=== PATIENT | male | born 1945 | race Caucasian/White ===

== ENCOUNTER 2017-07-16 16:07 | Emergency (ER) | payer MEDICARE ==
[~2017-07-16] VITALS: Ht 170.2 cm; Wt 86.2 kg
[2017-07-16] MEDS ORDERED: RANI150 (16:24)
[2017-07-16] MEDS ORDERED: CLOP75 (16:25)
[2017-07-16] MEDS ORDERED: LISI20 (16:25)
[2017-07-16] MEDS ORDERED: SERT100 (16:25)
[2017-07-16] MEDS ORDERED: ALLO100 (16:26)
[2017-07-16 16:34] LABS: BASOPHILS ABSOLUTE AUTO 0.07 K/mm3 (0.00-0.23); BASOPHILS PERCENT AUTO 1 % (0-2); EOSINOPHILS ABSOLUTE AUTO 0.27 K/mm3 (0.00-0.68); EOSINOPHILS PERCENT AUTO 3 % (0-6); Hemoglobin 14.1 g/dL (13.5-17.5); IMMATURE GRAN ABSOLUTE AUTO 0.05 K/mm3 (0.00-0.10); IMMATURE GRAN PERCENT AUTO 1 % (0-1); LYMPHOCYTES ABSOLUTE AUTO 1.18 K/mm3 (0.84-5.20); LYMPHOCYTES PERCENT AUTO 13 % (21-46); MONOCYTES ABSOLUTE AUTO 0.44 K/mm3 (0.16-1.47); MONOCYTES PERCENT AUTO 5 % (4-13); Mean Corpuscular HGB 30.1 pg (26.0-34.0); Mean Corpuscular HGB Conc 34.4 g/dL (31.5-36.5); Mean Corpuscular Volume 88 fL (80-100); Mean Platelet Volume 10.1 fL (9.1-12.4); NEUTROPHILS ABSOLUTE AUTO 6.91 K/mm3 (1.96-9.15); NEUTROPHILS PERCENT AUTO 78 % (41-73); Platelet Count 171 K/mm3 (150-400); RDW Coefficient Variation 12.6 % (11.7-14.2); RDW Standard Deviation 39.9 fL (35.1-46.3); Red Blood Cell Count 4.68 M/mm3 (4.30-5.90); White Blood Cell Count 8.92 K/mm3 (4.00-11.30)
[2017-07-16 17:12] LABS: Alanine Aminotransfer (ALT/SGP 22 U/L (12-78); Albumin, Blood 3.7 g/dL (3.4-5.0); Alk Phos 73 U/L (50-136); Anion Gap 13 mmol/L (6-16); Aspartate Aminotrans (AST/SGOT 22 U/L (12-37); Bilirubin, Total 0.4 mg/dL (0.1-1.0); Blood Urea Nitrogen 18 mg/dL (8-24); Bun/Creatinine Ratio 14.8 (12.0-20.0); CO2, Blood 20 mmol/L (21-32); Calcium, Blood 9.2 mg/dL (8.5-10.1); Chloride, Blood 104 mmol/L (98-108); Creatinine, Blood 1.22 mg/dL (0.60-1.20); Globulin, Blood 3.7 g/dL (2.2-4.0); Glomerular Filtration Rate >60 (60-); Glucose, Blood 97 mg/dL (70-99); Potassium, Blood 4.4 mmol/L (3.5-5.5); Sodium, Blood 137 mmol/L (136-145); Total Protein, Blood 7.4 g/dL (6.4-8.2)
== END 2017-07-16 18:16 | disposition home or self-care (01) ==
LOC: ER 16:07
PROVIDERS: Emergency Medicine
DX: R55 Syncope and collapse (principal); Z88.0 Allergy status to penicillin; Z79.899 Other long term (current) drug therapy; F17.200 Nicotine dependence, unspecified, uncomplicated
CPT/HCPCS: 70450; 71046; 80053; 85025; 93005; 93010; 99284

== ENCOUNTER 2017-09-02 16:18 | Emergency (ER) | payer MEDICARE ==
[~2017-09-02] VITALS: Ht 170.2 cm; Wt 81.7 kg
[~2017-09-02 16:18] MED LIST: ALLO100; CLOP75; LISI20; RANI150; SERT100
[2017-09-02] MEDS ORDERED: ROSU10TA PO (16:47)
[2017-09-02] MEDS ORDERED: EZET10 PO (16:48)
[2017-09-02] MEDS ORDERED: FINA5 PO (16:48)
[2017-09-02] MEDS ORDERED: TAMS.4ER PO (16:49)
[2017-09-02] MEDS ORDERED: ASPI325 PO (16:50)
[2017-09-02 17:15] LABS: BASOPHILS ABSOLUTE AUTO 0.05 K/mm3 (0.00-0.23); BASOPHILS PERCENT AUTO 0 % (0-2); EOSINOPHILS ABSOLUTE AUTO 0.27 K/mm3 (0.00-0.68); EOSINOPHILS PERCENT AUTO 2 % (0-6); Hematocrit 41.8 % (37.0-53.0); Hemoglobin 14.4 g/dL (13.5-17.5); IMMATURE GRAN PERCENT AUTO 1 % (0-1); LYMPHOCYTES ABSOLUTE AUTO 1.02 K/mm3 (0.84-5.20); LYMPHOCYTES PERCENT AUTO 8 % (21-46); MONOCYTES ABSOLUTE AUTO 0.53 K/mm3 (0.16-1.47); MONOCYTES PERCENT AUTO 4 % (4-13); Mean Corpuscular HGB 29.8 pg (26.0-34.0); Mean Corpuscular HGB Conc 34.4 g/dL (31.5-36.5); Mean Corpuscular Volume 86 fL (80-100); Mean Platelet Volume 10.2 fL (9.1-12.4); NEUTROPHILS ABSOLUTE AUTO 10.76 K/mm3 (1.96-9.15); NEUTROPHILS PERCENT AUTO 85 % (41-73); Platelet Count 163 K/mm3 (150-400); RDW Coefficient Variation 13.2 % (11.7-14.2); RDW Standard Deviation 41.1 fL (35.1-46.3); Red Blood Cell Count 4.84 M/mm3 (4.30-5.90); White Blood Cell Count 12.73 K/mm3 (4.00-11.30)
[2017-09-02 17:31] LABS: Albumin, Blood 3.9 g/dL (3.4-5.0); Bilirubin, Total 0.7 mg/dL (0.1-1.0); Bun/Creatinine Ratio 12.2 (12.0-20.0); Calcium, Blood 8.7 mg/dL (8.5-10.1); Creatinine, Blood 1.48 mg/dL (0.60-1.20); Globulin, Blood 3.8 g/dL (2.2-4.0); Potassium, Blood 4.4 mmol/L (3.5-5.5); Total Protein, Blood 7.7 g/dL (6.4-8.2)
[2017-09-02 17:58] LABS: Source, Urine Clean Catch
[2017-09-02 18:04] LABS: Appearance, Urine Clear (Clear); Bilirubin, Urine Neg (Neg); Blood, Urine 4+ (Neg); Color, Urine Yellow (P-Yellow); Glucose Qualitative, Urine Neg (Neg); Ketones, Urine Neg (Neg); Leukocyte Esterase, Urine Neg (Neg); Nitrite, Urine Neg (Neg); Protein, Urine 2+ (Neg); Urobilinogen, Urine NORM (Normal)
[2017-09-02] MEDS ORDERED: LEVE500 PO (18:23)
[2017-09-02 18:26] LABS: Bacteria Not Seen /hpf; Red Blood Cells, Urine Not Seen /hpf (0-2); Squamous Epithelial Cells Not Seen /hpf (Few); White Blood Cells, Urine Not Seen /hpf (0-5)
== END 2017-09-02 18:52 | disposition home or self-care (01) ==
LOC: ER 16:18
PROVIDERS: Emergency Medicine
DX: G40.909 Epilepsy, unspecified, not intractable, without status epilepticus (principal); I10 Essential (primary) hypertension; E78.5 Hyperlipidemia, unspecified; Z86.73 Personal history of transient ischemic attack (TIA), and cerebral infarction without residual deficits; Z88.0 Allergy status to penicillin; Z79.899 Other long term (current) drug therapy; Z79.82 Long term (current) use of aspirin
CPT/HCPCS: 70450; 80053; 81001; 85025; 93005; 93010; 96365; 99284; J1953

== ENCOUNTER 2024-06-22 11:33 | Emergency (ER) | payer OTHER ==
[~2024-06-22] VITALS: Ht 182.9 cm; Wt 70.3 kg
[~2024-06-22 11:33] MED LIST changes: +ASPI325 PO; +EZET10 PO; +FINA5 PO; +LEVE500 PO; +ROSU10TA PO; +TAMS.4ER PO
[2024-06-22] MEDS ORDERED: Cetirizine HCl10 MG PO (11:45)
[2024-06-22] MEDS ORDERED: QUETIAPINE FUMA5012 PO (11:45)
[2024-06-22] MEDS ORDERED: AMLODIPINE BESYL5 MG PO (11:45)
[2024-06-22] MEDS ORDERED: Lamictal150 MG PO (11:47)
[2024-06-22] MEDS ORDERED: Cholecalciferol1 GM PO (11:48)
[2024-06-22] MEDS ORDERED: ROSUVASTATIN CA40 MG PO (11:48)
[2024-06-22] MEDS ORDERED: OMEP20ER PO (11:48)
[2024-06-22] MEDS ORDERED: ERGO400 PO (11:49)
[2024-06-22] MEDS ORDERED: TRAZ50 PO (11:49)
[2024-06-22] MEDS ORDERED: ZOLOFT10013 PO (11:49)
[2024-06-22] MEDS ORDERED: Morphine Sulfate 4 MG/1 ML Injection IV ONE (12:45)
[2024-06-22] MEDS ORDERED: Ondansetron HCl 2 MG / ML 2ML Vial IV ONE (12:45)
[2024-06-22 15:00] VITALS: BP 160/66
== END 2024-06-22 16:50 | disposition home or self-care (01) ==
LOC: ER 11:33
DX: S12.110A Anterior displaced Type II dens fracture, initial encounter for closed fracture (principal); I10 Essential (primary) hypertension; E78.5 Hyperlipidemia, unspecified; F17.200 Nicotine dependence, unspecified, uncomplicated; W01.0XXA Fall on same level from slipping, tripping and stumbling without subsequent striking against object, initial encounter; Z86.73 Personal history of transient ischemic attack (TIA), and cerebral infarction without residual deficits; Z79.899 Other long term (current) drug therapy; Z88.0 Allergy status to penicillin
CPT/HCPCS: 70450; 72125; 93005; 93010; 96374; 96375; 99284-25; J2270; J2405; L0160

== ENCOUNTER 2024-08-30 23:13 | Observation (INO) | payer OTHER ==
[~2024-08-30] VITALS: Ht 170.2 cm; Wt 72.6 kg
[~2024-08-30 23:13] MED LIST changes: +AMLODIPINE BESYL5 MG PO; +Cetirizine HCl10 MG PO; +ERGO400 PO; +Lamictal150 MG PO; +OMEP20ER PO; +QUET200 PO; +ROSUVASTATIN CA40 MG PO; +TRAZ50 PO; +VITAMIN D5000 UNIT PO; +ZOLOFT10013 PO
[2024-08-30 23:29] LABS: BASOPHILS ABSOLUTE AUTO 0.04 K/mm3 (0.00-0.23); BASOPHILS PERCENT AUTO 1 % (0-2); EOSINOPHILS ABSOLUTE AUTO 0.24 K/mm3 (0.00-0.68); EOSINOPHILS PERCENT AUTO 5 % (0-6); Hematocrit 36.4 % (37.0-53.0); Hemoglobin 12.2 g/dL (13.5-17.5); IMMATURE GRAN ABSOLUTE AUTO 0.02 K/mm3 (0.00-0.10); IMMATURE GRAN PERCENT AUTO 0 % (0-1); LYMPHOCYTES PERCENT AUTO 21 % (21-46); MONOCYTES ABSOLUTE AUTO 0.41 K/mm3 (0.16-1.47); MONOCYTES PERCENT AUTO 8 % (4-13); Mean Corpuscular HGB 29.2 pg (26.0-34.0); Mean Corpuscular HGB Conc 33.5 g/dL (31.5-36.5); Mean Corpuscular Volume 87 fL (80-100); Mean Platelet Volume 9.6 fL (9.1-12.4); NEUTROPHILS ABSOLUTE AUTO 3.33 K/mm3 (1.96-9.15); NEUTROPHILS PERCENT AUTO 65 % (41-73); Platelet Count 145 K/mm3 (150-400); RDW Coefficient Variation 14.3 % (11.7-14.2); RDW Standard Deviation 45.6 fL (35.1-46.3); Red Blood Cell Count 4.18 M/mm3 (4.30-5.90); White Blood Cell Count 5.14 K/mm3 (4.00-11.30)
[2024-08-30 23:41] LABS: Alanine Aminotransfer (ALT/SGP 21 U/L (12-78); Albumin, Blood 3.4 g/dL (3.4-5.0); Alk Phos 77 U/L (50-136); Anion Gap 11 mmol/L (3-11); Aspartate Aminotrans (AST/SGOT 15 U/L (12-37); Bilirubin, Total 0.3 mg/dL (0.1-1.0); Blood Urea Nitrogen 29 mg/dL (8-24); Bun/Creatinine Ratio 22.8 (12.0-20.0); CO2, Blood 23 mmol/L (21-32); Calcium, Blood 8.6 mg/dL (8.5-10.1); Chloride, Blood 106 mmol/L (98-108); Creatinine, Blood 1.27 mg/dL (0.60-1.20); Ethanol (Alcohol), Blood, Med <3 mg/dL; Globulin, Blood 3.5 g/dL (2.2-4.0); Glomerular Filtration Rate 58 (60-); Glucose, Blood 117 mg/dL (70-99); Sodium, Blood 136 mmol/L (136-145); Total Protein, Blood 6.9 g/dL (6.4-8.2)
[2024-08-31] MEDS ORDERED: Aspirin 325 MG Tab PO ONE (00:20)
[2024-08-31] MEDS ORDERED: Morphine Sulfate 4 MG/1 ML Injection IV ONE ×2 (00:55→01:30)
[2024-08-31] MEDS ORDERED: Acetaminophen 325 MG TABLET PO PRN (01:05)
[2024-08-31] MEDS ORDERED: FLU VACC TS2024-25(6MOS UP)/PF 45 MCG/0.5 ML SYRINGE IM ONE (01:05)
[2024-08-31 01:09] LABS: U Amphetamine Screen Not Detected; U Barbituate Screen Not Detected; U Benzodiazapine Screen Not Detected; U Buprenorphine Screen Not Detected; U Cannabinoids Screen DETECTED; U Cocaine Screen Not Detected; U Methadone Screen Not Detected; U Methamphetamine Screen Not Detected; U Opiates Screen Not Detected; U Oxycodone Screen Not Detected; U Phencyclidine Screen Not Detected
[2024-08-31] MEDS ORDERED: TraMADol HCl 50 MG Tab PO PRN (01:10)
[2024-08-31] MEDS ORDERED: Ondansetron HCl 2 MG / ML 2ML Vial IV PRN (01:10)
[2024-08-31] MEDS ORDERED: Morphine Sulfate 4 MG/1 ML Injection IV PRN (01:10)
[2024-08-31] MEDS ORDERED: Naloxone HCl 0.4MG / ML 1ML Vial IV PRN (01:10)
[2024-08-31 05:03] LABS: BASOPHILS ABSOLUTE AUTO 0.04 K/mm3 (0.00-0.23); BASOPHILS PERCENT AUTO 1 % (0-2); EOSINOPHILS ABSOLUTE AUTO 0.25 K/mm3 (0.00-0.68); EOSINOPHILS PERCENT AUTO 5 % (0-6); Hematocrit 35.1 % (37.0-53.0); Hemoglobin 11.7 g/dL (13.5-17.5); IMMATURE GRAN ABSOLUTE AUTO 0.02 K/mm3 (0.00-0.10); IMMATURE GRAN PERCENT AUTO 0 % (0-1); LYMPHOCYTES PERCENT AUTO 25 % (21-46); MONOCYTES ABSOLUTE AUTO 0.39 K/mm3 (0.16-1.47); MONOCYTES PERCENT AUTO 8 % (4-13); Mean Corpuscular HGB 29.1 pg (26.0-34.0); Mean Corpuscular HGB Conc 33.3 g/dL (31.5-36.5); Mean Corpuscular Volume 87 fL (80-100); Mean Platelet Volume 10.1 fL (9.1-12.4); NEUTROPHILS ABSOLUTE AUTO 2.87 K/mm3 (1.96-9.15); NEUTROPHILS PERCENT AUTO 60 % (41-73); Platelet Count 128 K/mm3 (150-400); RDW Coefficient Variation 14.3 % (11.7-14.2); RDW Standard Deviation 45.8 fL (35.1-46.3); Red Blood Cell Count 4.02 M/mm3 (4.30-5.90); White Blood Cell Count 4.77 K/mm3 (4.00-11.30)
[2024-08-31 05:14] LABS: Albumin, Blood 3.2 g/dL (3.4-5.0); Bilirubin, Total 0.2 mg/dL (0.1-1.0); Calcium, Blood 8.1 mg/dL (8.5-10.1); Creatinine, Blood 1.13 mg/dL (0.60-1.20); Globulin, Blood 3.2 g/dL (2.2-4.0); Magnesium, Blood 2.4 mg/dL (1.6-2.4); Potassium, Blood 3.8 mmol/L (3.5-5.5); Total Protein, Blood 6.4 g/dL (6.4-8.2)
[2024-08-31] MEDS ORDERED: Aspirin 81 MG Chew PO SCH (09:00)
[2024-08-31] MEDS ORDERED: Docusate Sodium 100 MG Cap PO SCH (09:00)
[2024-08-31] MEDS ORDERED: Atorvastatin 40 MG Tab PO SCH (09:00)
--- NOTE | 2024-08-31 14:16 | NUR ---
1414 REPORT FROM BRUNO RAMIREZ IN ER
[2024-08-31 15:08] VITALS: BP 181/70
[2024-08-31 19:33] VITALS: BP 171/83
[2024-09-01 00:12] VITALS: BP 174/64
[2024-09-01 02:53] VITALS: BP 211/124
[2024-09-01] MEDS ORDERED: AmLODIPine Besylate 5 MG Tab PO SCH ×2 (03:00→21:00)
[2024-09-01 04:55] VITALS: BP 205/80
[2024-09-01] MEDS ORDERED: Labetalol HCL 5 MG/ML 4ML Injection (Single Dose) IV PRN (05:10)
--- NOTE | 2024-09-01 06:10 | NUR ---
Shift Summary Pt admitted to this unit from ED for possible CVA. MRI and CT are both negative. Pt has somewhat slurred speech, strength is equal and appropriate on both sides, eyes PERRLA. He has a neck collar on for C2 fracture, he left it on t/o the night. He is AOx4, bed alarm on, remains in bed and uses the urinal independently. Q4 neuro checks, no changes t/o the night. Pt was hypertensive t/o the night and on permissive hypertension. This AM around 0300 his BP was 211/124, I called the hospitalist who restarted his home Amlodipine with first dose now. At 0500 his BP was 205/80, I called the hospitalist again who ordered IV Labetelol with paramaters for systolic > 180 but I was unable to administer b/c pt's resting HR is between 55-77 usually on the lower end. He is currently resting comfortably in bed. No c/o of pain or nausea.
[2024-09-01 08:18] VITALS: BP 178/75
[2024-09-01] MEDS ORDERED: ZESTRIL40 M1 PO (16:50)
[2024-09-01] MEDS ORDERED: HYDROXYZINE PAM25 MG PO (16:56)
--- NOTE | 2024-09-01 18:32 | NUR ---
NO CHANGES, PATIENTS ORIENTATION 1-2, SELF AND STAFF, PERSON, NOT PLACE OR TIME. TWO PERSON ASSIST DUE TO SHAKEY NESS, C2 FX, AND DEMENTIA WHEN GIVING QUES FOR SAFE AMBULATION AND TRANSFERING, LARGE BM TODAY, PATIENT PULLED IV OUT, DENIES PAIN AT THIS TIME, MEDICATED WITH TYLENOL EARLIER, BED ALARM ON, CALL LIGHT WITH IN REACH
[2024-09-01 18:41] VITALS: BP 176/77
[2024-09-01 19:53] VITALS: BP 150/67
--- NOTE | 2024-09-02 04:00 | NUR ---
SHIFT SUMMARY ADMITTED FOR CVA VS. TIA. FULL CODE. PLAN IS FOR PLACEMENT. C-COLLAR IN PLACE FOR A C2 FRACTURE RETAINED FROM A GLF. MRI C-SPINE PERFORMED ON PREVIOUS SHIFT. CARDIAC DIET. 2 MAX ASSIST W/FWW & GB. HE IS A&O X2 - HE DOES PULL OFF LINES AND TUBING. PHYSICAL AND OCCUPATIONAL THERAPIES ARE ORDERED.
[2024-09-02 04:16] VITALS: BP 171/74
[2024-09-02 05:19] LABS: BASOPHILS ABSOLUTE AUTO 0.04 K/mm3 (0.00-0.23); BASOPHILS PERCENT AUTO 1 % (0-2); EOSINOPHILS ABSOLUTE AUTO 0.32 K/mm3 (0.00-0.68); EOSINOPHILS PERCENT AUTO 5 % (0-6); Hematocrit 40.4 % (37.0-53.0); Hemoglobin 13.9 g/dL (13.5-17.5); IMMATURE GRAN ABSOLUTE AUTO 0.02 K/mm3 (0.00-0.10); IMMATURE GRAN PERCENT AUTO 0 % (0-1); LYMPHOCYTES ABSOLUTE AUTO 1.02 K/mm3 (0.84-5.20); LYMPHOCYTES PERCENT AUTO 16 % (21-46); MONOCYTES PERCENT AUTO 9 % (4-13); Mean Corpuscular HGB 29.1 pg (26.0-34.0); Mean Corpuscular HGB Conc 34.4 g/dL (31.5-36.5); Mean Corpuscular Volume 85 fL (80-100); Mean Platelet Volume 9.6 fL (9.1-12.4); NEUTROPHILS ABSOLUTE AUTO 4.47 K/mm3 (1.96-9.15); NEUTROPHILS PERCENT AUTO 69 % (41-73); Platelet Count 145 K/mm3 (150-400); RDW Standard Deviation 43.4 fL (35.1-46.3); Red Blood Cell Count 4.78 M/mm3 (4.30-5.90); White Blood Cell Count 6.47 K/mm3 (4.00-11.30)
[2024-09-02 05:42] LABS: Bun/Creatinine Ratio 21.6 (12.0-20.0); Calcium, Blood 8.9 mg/dL (8.5-10.1); Creatinine, Blood 1.11 mg/dL (0.60-1.20); Potassium, Blood 4.1 mmol/L (3.5-5.5)
[2024-09-02 07:36] VITALS: BP 175/61
[2024-09-02] MEDS ORDERED: Losartan Potassium 25 MG Tab PO SCH (09:00)
--- NOTE | 2024-09-02 10:15 | NUR ---
C-COLLAR DC'D- DR JACQUES AT THE BEDSIDE. C2 Fx IS NON HEALING, C-COLLAR DC'D PER ORDER. SPOKE TO ABOUT PT CODE STATUS, RECIEVED A CONSULT FOR PALLIATIVE CARE FOR POLST FORM AND CODE STATUS CHANGE.
[2024-09-02] MEDS ORDERED: HydrALAZINE HCl 10 MG Tab PO PRN (14:25)
[2024-09-02] MEDS ORDERED: Losartan Potassium 50 MG Tab PO SCH (15:00)
[2024-09-02 15:14] VITALS: BP 137/74
--- NOTE | 2024-09-02 15:30 | NUR ---
CALLED DR JACQUES- [place] DOSE CHANGED TO 50MG FROM 25 WITH FIRST DOSE NOW. BP 137 SYSTOLIC NOW. ORDER RECIEVED TO START THE MED TOMORROW MORNING INSTEAD.
--- NOTE | 2024-09-02 16:33 | NUR ---
SHIFT SUMMARY- PT HAD HIS C-COLLAR REMOVED BY STAFF PER DR LOPEZ ORDER, SEE PREV NOTE FOR DETAILS. PT HAS HAD NO ACUTE CHANGE T/O THE SHIFT. HE IS A&O X2. SPOUSE NEVER CAME TO VISIT, SO CODE STATUS WAS NOT DISCUSSED. PALLIATIVE CARE WAS CONSULTED.
[2024-09-02 19:02] VITALS: BP 136/63
[2024-09-03 03:53] VITALS: BP 157/64
[2024-09-03 07:19] VITALS: BP 157/68
--- NOTE | 2024-09-03 12:57 | NUR ---
PC NOTE: MET WITH PATIENT IN HIS ROOM. ZAIN IS SITTING UP IN CHAIR AT BEDSIDE. HE IS A/O AND ABLE TO PARTICIPATE IN MEANINGFUL CONVERSATION. WE DISCUSS CODE STATUS. HE IS EDUCATED ON WHAT CPR/DNR MEASURES ARE. PT STATES HE WANTS TO BE A DNR ALS O STATING "JUST LET ME GO, I DON'T WANT TO GO THROUGH THAT". ALSO SPOKE TO HUEY WHOM HE LIVES WITH. SHE STATES HE DID HAVE A POLST AT ONE TIME THAT WAS DNR BUT THEY LOST THE FORM. SHE AGREES TO HAVE HIS CODE STATUS DNR WITH SELECTIVE TREATMENT. ZAIN AGREES TO HAVE CODE STATUS CHANGED DURING THIS HOSPITAL STAY. UPDATED DR. JACQUES WITH PT/SPOUSE WISHES. SHE AGREES TO CODE STATUS CHANGE AND SIGNED THE POLST. COPY SENT TO POLST REGISTRY. CODE STATUS CHANGED IN [facility]. COPY PPLACED ON CHART AND ORIGINAL GIVEN TO ZAIN.
--- NOTE | 2024-09-03 15:13 | NUR ---
betito from [facility] called. pt to d/c to [facility]. request call to bora marquez. done. she states glad to see is moving forward.
--- NOTE | 2024-09-03 15:34 | NUR ---
called report to rex doyle.
[2024-09-03 15:41] VITALS: BP 143/108
[2024-09-03] MEDS ORDERED: DOCU100 PO (15:43)
[2024-09-03] MEDS ORDERED: ACET325 PO (15:43)
[2024-09-03] MEDS ORDERED: ASPI81CH PO (15:43)
--- NOTE | 2024-09-03 16:26 | NUR ---
no iv no tele. pt discharged to [facility] with transport at [id number]
== END 2024-09-03 16:11 | disposition hospice, inpatient (51) ==
LOC: ER 23:13 → ERHOLD 23:14 → MEDS 23:14 → ERHOLD 23:14 → MEDS 08-31 14:41
PROVIDERS: Internal Medicine; Student in an Organized Health Care Education/Training Program; ADMIT Student in an Organized Health Care Education/Training Program
DX: I63.9 Cerebral infarction, unspecified (principal); S12.110A Anterior displaced Type II dens fracture, initial encounter for closed fracture; E78.5 Hyperlipidemia, unspecified; I10 Essential (primary) hypertension; N40.0 Benign prostatic hyperplasia without lower urinary tract symptoms; Z88.0 Allergy status to penicillin; Z79.899 Other long term (current) drug therapy; Z72.0 Tobacco use; X58.XXXA Exposure to other specified factors, initial encounter
CPT/HCPCS: 36415; 70450; 70496; 70498; 70551; 72141; 80048; 80053; 80320; 83735; 85025; 93005; 93010; 93306; 94762; 96374; 96376; 97110; 97161; 97166; 97530; 97535; 99285-25; A9270; G0378; J2270; L0160; Q9967